=== PATIENT | male | born 1970 | race Caucasian/White ===

== ENCOUNTER 2018-08-29 14:49 | Emergency (ER) | payer OTHER ==
[2018-08-29] MEDS ORDERED: SULFAMETHOX/TMP 800/160 MG 1 TAB PO ONE (15:32)
--- NOTE | 2018-08-29 15:36 | EDPHY ---
H & P Stated Complaint: swollen elbow, sent from primary care Time Seen by Provider: 08/29/18 15:00 HPI/ROS: CHIEF COMPLAINT: Left elbow swelling HISTORY OF PRESENT ILLNESS: 48-year-old male presents with left elbow swelling. Onset of left elbow swelling a few days ago, gradually increasing until last night. The swelling has somewhat lessened today. Concern for recurrent bursitis. History of severe olecranon bursitis in 2003, MRSA, requiring IV antibiotics. Recurrent bursitis 8-9 years ago, responded to oral antibiotics. Symptoms are similar to prior bursitis. No fever and no pain with elbow range of motion. REVIEW OF SYSTEMS: feels slightly lightheaded and not as sharp mentally as usual, o/w complete 10 point ROS reviewed and is negative except for the noted elements in the HPI - Personal History Current Tetanus/Diphtheria Vaccine: Yes Current Tetanus Diphtheria and Acellular Pertussis (TDAP): Yes - Medical/Surgical History PMH: Olecranon bursitis Hx Asthma: Yes Hx Chronic Respiratory Disease: No Hx Diabetes: No Hx Cardiac Disease: No Hx Renal Disease: No Hx Cirrhosis: No Hx Alcoholism: No Hx HIV/AIDS: No Hx Splenectomy or Spleen Trauma: No - Social History Smoking Status: Never smoked - Physical Exam Exam: Alert, pleasant and nontoxic-appearing HEENT: normal inspection Chest: normal RR, CTA CV: RRR Abd soft, NT Extremities: Left upper extremity-mild swelling over the olecranon, without fluctuance. No erythema, warmth or tenderness; left elbow range of motion nonpainful including supination/pronation Skin: Intact Neuro: Motor and sensory intact Vascular: Capillary refill brisk distally Constitutional: Initial Vital Signs Temperature (C) 36.7 C 08/29/18 14:52 Heart Rate 103 H 08/29/18 14:52 Respiratory Rate 18 08/29/18 14:52 Blood Pressure 152/96 H 08/29/18 14:52 O2 Sat (%) 95 08/29/18 14:52 O2 Delivery Mode Room Air Allergies/Adverse Reactions: No Known Allergies Allergy (Unverified 08/29/18 14:52) Home Medications: Medication Instructions Recorded Sulfamethox/Tmp 800/160 mg 1 tab PO BID #14 tab 08/29/18 [Bactrim Ds] Medical Decision Making ED Course/Re-evaluation: This patient presents with a possible recurrent early olecranon bursitis. No fluctuance or drainable fluid today, aspiration not indicated. History of MRSA. Will place patient on Bactrim. CBC and lactate done because of history of severe infection in the past. Results normal, d/w pt. Warning signs discussed. Differential Diagnosis: Includes does not limited to inflammatory bursitis, septic bursitis, joint infection - Data Points Laboratory Results: Laboratory Results 08/29/18 15:45 Medications Given: Discontinued Medications Trimethoprim/Sulfamethoxazole (Bactrim Ds) 1 ea PO EDNOW ONE PRN Reason: Protocol Stop: 08/29/18 15:33 Last Admin: 08/29/18 15:56 Dose: 1 ea Departure - Departure Disposition: Home, Routine, Self-Care Clinical Impression: Olecranon bursitis, left elbow Condition: Good Instructions: Elbow Bursitis (ED) Additional Instructions: Ibuprofen 600 mg 3 times daily while the pain persists. Return for worsening symptoms, fever, any concerns. Referrals: Melina Rodríguez MD [Primary Care Provider] - As per Instructions Prescriptions: Sulfamethox/Tmp 800/160 mg [Bactrim Ds] 1 tab PO BID #14 tab
[2018-08-29 15:54] LABS: PLATELET COUNT 300 10^3/uL (150-400)
[2018-08-29 16:15] VITALS: BP 145/78
== END 2018-08-29 16:14 | disposition home or self-care (01) ==
DX: M70.22 Olecranon bursitis, left elbow (principal); M79.89 Other specified soft tissue disorders